=== PATIENT | male | born 1980 | race Caucasian/White ===

== ENCOUNTER 2024-02-28 08:31 | Emergency (ER) | payer BC, SELFPAY ==
--- NOTE | ~2024-02-28 | CT_ITS ---
EXAMINATION: CT FACIAL BONES WITHOUT CONTRAST CLINICAL INFORMATION: Pain over left maxillary sinus COMPARISON: None available. TECHNIQUE: Axial images through the facial bones without contrast. Sagittal and coronal reconstructions on the technologist workstation were performed. This CT examination was performed using dose optimization techniques as appropriate, variously including the following: *Automated exposure control *Adjustment of mA and/or kV according to patient size (this includes techniques or standardized protocols for targeted exams where dose is matched to indication/reason for exam; i.e. extremities or head) *Use of iterative reconstruction technique DLP: 438 mGy-cm FINDINGS: No fracture or dislocation. The paranasal sinuses are well aerated and clear. Mastoid air cells and middle ears are clear. Temporomandibular joints are normal. Poor dentition. No dental abscess seen. Salivary glands are normal. There is diffuse shotty cervical lymphadenopathy. The orbits are normal. Visualized intracranial structures are normal. CT/CT facial bones wo IV con IMPRESSION: No evidence of sinusitis.
[2024-02-28 08:54] VITALS: BP 132/72; PULSE 75; RESP 18; TEMP 36.6; O2SAT 97; BMI 40.9
[2024-02-28 09:12] LABS: MANUAL DIFF FLAG NO
[2024-02-28 09:13] LABS: Basophils Absolute Auto 0.1 X10*3/uL (0.0-0.2); Basophils Percent Auto 0.8 % (0-2); Eosinophils Percent Auto 0.2 % (0-4); Hematocrit 40.1 % (42.0-52.0); Hemoglobin 14.1 g/dl (14.0-18.0); Imm Gran Abs Auto 0.03 X10*3/uL (0.00-0.03); Imm Gran Pct Auto 0.5 % (0.0-0.4); Lymphocytes Absolute Auto 2.5 X10*3/uL (1.2-4.9); Lymphocytes Percent Auto 39.6 % (20-40); Mean Corpuscular HGB Conc 35.2 g/dl (31.0-36.0); Mean Corpuscular Hemoglobin 30.5 pg (27.0-33.0); Mean Corpuscular Volume 86.6 fL (80.0-98.0); Mean Platelet Volume 10.6 fL (9.4-12.4); Monocytes Absolute Auto 0.5 X10*3/uL (0.1-1.2); Monocytes Percent Auto 7.4 % (2-11); Neutrophils Absolute Auto 3.2 x10*3/uL (2.0-8.3); Neutrophils Percent Auto 51.5 % (45-73); Platelet Count 180 X10*3/uL (160-400); Red Blood Count 4.63 X10*6/uL (4.60-5.80); Red Cell Distribution Width 12.7 % (11.0-16.0); White Blood Count 6.2 X10*3/uL (4.8-10.8)
[2024-02-28 09:29] LABS: Alanine Aminotransferase 27 U/L (0-40); Albumin Level 3.9 g/dL (3.5-5.0); Alkaline Phosphatase 69 U/L (39-117); Anion Gap 11 (12-20); Aspartate Amino Transferase 18 U/L (5-37); Bilirubin Total 0.3 mg/dL (0.0-1.0); Blood Urea Nitrogen 14 mg/dL (9-16); Calcium 9.2 mg/dL (8.4-10.2); Carbon Dioxide 25 mmol/L (22-29); Chloride 106 mmol/L (96-108); Creatinine Clr Calc Pharmacy 108.8; Estimated Glomerular Filt Rate > 60; Glucose Random 148 mg/dL (60-115); Potassium 4.2 mmol/L (3.3-5.1); Sodium 138 mmol/L (135-145); Total Protein 6.5 g/dL (6.5-8.0)
--- NOTE | 2024-02-28 09:56 | ED.GENADULT ---
HPI - General Adult General Chief complaint: General Medical Stated complaint: abscess in nose ? Time Seen by Provider: 02/28/24 09:43 Source: patient Mode of arrival: ambulatory Limitations: no limitations History of Present Illness HPI narrative: 43 year old male with no significant pmhx presents to the ED this morning for evaluation of left sinus pain x5 days. Admits pain has worsened and is becoming irritated by the safety googles that he is required to wear at work. Reports taking Ibuprofen 800mg at 0830 this morning with little relief. Rates pain 6/10 at present. Denies recent illness. Denies fever, chills, eye pain, ear pain, sore throat, cough, congestion. Denies trauma or injury to the face. Related Data Previous Rx's Medication Instructions Recorded naproxen 500 mg tablet 500 mg PO Q8-12H PRN pain (scale 02/28/24 score 4-6) #14 tabs Allergies Allergy/AdvReac Type Severity Reaction Status Date / Time No Known Allergies Allergy Unverified 02/28/24 08:54 Review of Systems Review of Systems: Constitutional: No fever, chills, fatigue, night sweats, weight changes ENT/Mouth: No ear pain, hearing loss, nasal congestion, rhinorrhea, sore throat, +left sinus pain Eyes: No eye pain, swelling, redness, vision changes, discharge Cardio: No chest pain, palpitations, GUERRA, orthopnea, peripheral edema Pulm: No SOB, cough, sputum, wheezing, dyspnea, hemoptysis GI: No nausea, vomiting, hematemesis, abdominal pain, diarrhea, constipation, hematochezia, melena : No irregular bleeding, dysuria, frequency, urgency, hesitancy, hematuria, flank pain, urinary flow changes, urinary incontinence or retention MSK: No back pain, neck pain, joint pain, myalgias Skin: No lesions, rashes Neuro: No weakness, numbness, paresthesias, LOC, dizziness, headache Psych: No anxiety/panic, depression, SI/HI, AH/VH All other systems reviewed and are negative. [facility] Past Medical History Attestation statement: The following information was validated with the patient. Source: old records reviewed and nursing notes reviewed Social History Social History Advance Directives: No Advance Directives Information Provided: No Physical Exam ED Vital Signs: Vital Signs - 24 hr 02/28/24 08:54 02/28/24 13:06 Temperature 98 F 98 F Pulse Rate 75 85 Respiratory Rate 18 20 Blood Pressure 132/72 145/82 H Pulse Oximetry 97 100 Oxygen Delivery Method Room Air Room Air BMI result Body Mass Index 40.9 Vital signs stable, afebrile. Const General: cooperative, healthy appearing, comfortable and no acute distress Orientation/consciousness: patient oriented x3 Limitations: no limitations HENMT Other: + tender to palpation over left maxillary sinus without palpable deformity or fluctuance + posterior oropharynx without erythema or edema. No tonsillar exudate. No peritonsillar masses. Uvula midline. Controlling secretions and speaking in complete sentences. + hard and soft palate WNL. Head: Yes normal to inspection, Yes No palpable skull fracture present, Yes normocephalic and Yes atraumatic Ears: hearing grossly normal bilaterally, external ears normal, TM's normal bilaterally, EAC's normal, mastoids normal and no periauricular adenopathy General nose exam: Normal external nose present, Normal nares present, No nasal polyps present, Normal nasal mucous membranes and turbinates present, Normal septum present and No nasal discharge present Eyes Other: + EOMs intact without entrapment or pain General: appearance normal, both eyes and all related structures Conjunctivae: conjunctivae normal Sclerae: sclerae normal Pupils: Equal, round and reactive pupils present Neck Neck: Yes normal visual inspection, Yes full ROM and Yes no lymphadenopathy Resp Effort & Inspection: normal respiratory effort and able to speak in complete sentences Auscultation: clear to auscultation bilaterally Cardio Rate: regular rate Rhythm: regular rhythm Skin General skin exam: no rashes or lesions noted Neuro General: patient oriented x3 and gait normal Cranial nerves: Yes Equal, round and reactive pupils present Course Course Course Narrative: 1020-- CBC without leukocytosis or left shift. No anemia. H&H stable. Chemistry without acute electrolyte abnormality requiring intervention. Normal renal and liver function. Awaiting CT facial bones. Suspicion for sinusitis at this time. 1220-- CT facial bones essentially unremarkable. No evidence of sinusitis or other abscess/ infection. discussed results with patient. as we do not have an etiology of his discomfort at this time, will provide patient with referal to ENT for further work up. he reports improvement in pain with tylenol. Patient has remained stable throughout ED visit today. Discussed worrisome signs and symptoms and when to return to the ED. All questions answered at this time. Patient is agreeable with disposition and stable for discharge. Medications Administered Discontinued Medications Generic Name Dose Route Start Last Admin Trade Name Forrest PRN Reason Stop Dose Admin Acetaminophen 975 mg 02/28/24 10:12 02/28/24 10:38 Acetaminophen 325 Mg Tablet PO 02/28/24 10:13 975 mg ONCE ONE Administration Medical Decision Making Medical Decision Making [facility] Narrative: 43 year old male with no significant pmhx presents to the ED this morning for evaluation of left sinus pain x5 days. Vital signs are stable. Afebrile. He is nontoxic appearing in no acute distress. No obvious facial swelling or overlying skin changes. Exquisitely tender to palpation over the left maxillary sinus. No palpable deformity. EOMs intact without pain or entrapment. Bilateral EACs and TMs WNL. Oropharynx WNL. No obvious periapical abscesses or dental caries. Posterior oropharynx WNL, no erythema, edema or peritonsillar masses. Soft and hard palate WNL. Differential diagnosis includes sinusitis, upper respiratory infection. Low suspicion for COACH WIRER, retropharyngeal abscess, dental abscess, trigeminal neuralgia, orbital cellulitis, periorbital cellulitis. Plan for basic labs, viral swabs and CT facial bones. Differential Diagnosis Differential Diagnoses: The differential diagnosis associated with the presentation includes as above. Admission/Observation not indicated. Lab Data [facility] Lab Attestation statement: I reviewed the patient's lab results. as above. 02/28/24 09:08 02/28/24 09:08 Labs: Lab Results 02/28/24 02/28/24 Range/Units 09:08 10:46 WBC 6.2 (4.8-10.8) X10*3/uL RBC 4.63 (4.60-5.80) X10*6/uL Hgb 14.1 (14.0-18.0) g/dl Hct 40.1 L (42.0-52.0) % MCV 86.6 (80.0-98.0) fL MCH 30.5 (27.0-33.0) pg MCHC 35.2 (31.0-36.0) g/dl RDW 12.7 (11.0-16.0) % Plt Count 180 (160-400) X10*3/uL MPV 10.6 (9.4-12.4) fL Immature Gran % (Auto) 0.5 H (0.0-0.4) % Neut % (Auto) 51.5 (45-73) % Lymph % (Auto) 39.6 (20-40) % Yancey % (Auto) 7.4 (2-11) % Eos % (Auto) 0.2 (0-4) % Baso % (Auto) 0.8 (0-2) % Lymph # (Auto) 2.5 (1.2-4.9) X10*3/uL Yancey # (Auto) 0.5 (0.1-1.2) X10*3/uL Eos # (Auto) 0.0 (0.0-0.4) X10*3/uL Baso # (Auto) 0.1 (0.0-0.2) X10*3/uL Abs Immat Gran (auto) 0.03 (0.00-0.03) X10*3/uL Absolute Neuts (auto) 3.2 (2.0-8.3) x10*3/uL Absolute Nucleated RBC 0.000 (0.0-0.012) X10*3/uL Nucleated RBC % (auto) 0.0 (0.0-0.2) /100WBC Sodium 138 (135-145) mmol/L Potassium 4.2 (3.3-5.1) mmol/L Chloride 106 (96-108) mmol/L Carbon Dioxide 25 (22-29) mmol/L Anion Gap 11 L (12-20) BUN 14 (9-16) mg/dL Creatinine 1.10 (0.5-1.4) mg/dL Estim Creat Clear Calc 108.8 Estimated GFR > 60 Random Glucose 148 H (60-115) mg/dL Calcium 9.2 (8.4-10.2) mg/dL Total Bilirubin 0.3 (0.0-1.0) mg/dL AST 18 (5-37) U/L ALT 27 (0-40) U/L Alkaline Phosphatase 69 (39-117) U/L Total Protein 6.5 (6.5-8.0) g/dL Albumin 3.9 (3.5-5.0) g/dL Influenza Type A (PCR) NEGATIVE (Negative) Influenza Type B (PCR) NEGATIVE (Negative) RSV RNA Qual (PCR) NEGATIVE (Negative) SARS-CoV-2 RNA (RT-PCR) NEGATIVE (Negative) Independent Interpretation I performed an independent interpretation of an: CT Scan Interpretation: I have personally reviewed CT scan and agree with radiologist's interpretation. Radiology Impression Discussion of test interpretation with radiology: I have reviewed the radiologist's reading. Radiologist Impression: EXAMINATION: CT FACIAL BONES WITHOUT CONTRAST CLINICAL INFORMATION: Pain over left maxillary sinus COMPARISON: None available. TECHNIQUE: Axial images through the facial bones without contrast. Sagittal and coronal reconstructions on the technologist workstation were performed. This CT examination was performed using dose optimization techniques as appropriate, variously including the following: *Automated exposure control *Adjustment of mA and/or kV according to patient size (this includes techniques or standardized protocols for targeted exams where dose is matched to indication/reason for exam; i.e. extremities or head) *Use of iterative reconstruction technique DLP: 438 mGy-cm FINDINGS: No fracture or dislocation. The paranasal sinuses are well aerated and clear. Mastoid air cells and middle ears are clear. Temporomandibular joints are normal. Poor dentition. No dental abscess seen. Salivary glands are normal. There is diffuse shotty cervical lymphadenopathy. The orbits are normal. Visualized intracranial structures are normal. CT/CT facial bones wo IV con IMPRESSION: No evidence of sinusitis. Prescription Management I considered prescription management with: Pain Medication and Antibiotic Social Determinants Patient?s care significantly limited by Social Determinants of Health including: Other Social Determinant of Health Discharge Plan Discharge Clinical Impression: Facial pain Patient Disposition: Home, Self-Care Additional Instructions: Your labs today are reassuring. The CT of your facial bones does not demonstrate acute abscess or evidence of sinus infection. Naproxen is a pain medication that has been sent to your pharmacy. Take this for pain/discomfort. Do not take with other NSAIDS such as Ibuprofen as this may increase risk of GI bleeding. You have been given a referral to ENT for further evaluation. CALL THEM TO MAKE AN APPOINTMENT. THEY WILL NOT CALL YOU. Return with new or worsening symptoms. In the case of an emergency call 911. Prescriptions: New naproxen 500 mg tablet 500 mg PO Q8-12H PRN (Reason: pain (scale score 4-6)) Qty: 14 0RF Referrals: Don Jara [Physician] - Stand Alone Forms: Work/School Release Interventions: ED Discharge Assessment Last Done: 02/28/24 13:06 Discharge Date/Time: 02/28/24 13:07
[2024-02-28] MEDS: Acetaminophen 325 MG TABLET 975 MG PO (10:38)
[2024-02-28 11:32] LABS: Influenza A PCR NEGATIVE (Negative); Influenza B PCR NEGATIVE (Negative); Resp Syncy Virus RNA Qual PCR NEGATIVE (Negative); SARS COV2 PCR INHOUSE NEGATIVE (Negative)
[2024-02-28 13:06] VITALS: BP 145/82; PULSE 85; RESP 20; TEMP 36.6; O2SAT 100
== END 2024-02-28 13:07 | disposition home or self-care (01) ==
PROVIDERS: Physician Assistant Medical; Emergency Provider Student in an Organized Health Care Education/Training Program; PCP Internal Medicine
DX: J34.89 Other specified disorders of nose and nasal sinuses (principal); Z03.818 Encounter for observation for suspected exposure to other biological agents ruled out
CPT/HCPCS: 0241U; 36415; 70486; 80053; 85025; 99284